=== PATIENT | male | born 1975 | race Caucasian/White ===

== ENCOUNTER 2020-08-26 09:42 | Emergency (ER) | payer OTHER ==
[~2020-08-26] VITALS: Ht 177.8 cm; Wt 108.9 kg
[~2020-08-26 09:42] MED LIST: ACETAMINOPHEN-1 EAC1; APAP500; CARAFATE 1 GM TA1 G1 PO; FLONASE 0.05%50 MCG NASAL; IBUPROFEN 600600 M1 PO; NAPROXEN DELAY500 M1 PO; OMEPRAZOLE 20 M20 MG PO; PERCOCET 5-3251 EACH PO; ULTRAM 50MG TAB50 MG PO; ZOFRAN4 MG PO; ZPAK PO
[2020-08-26 14:01] LABS: AMP/METHAMP POSITIVE (Negative); BARBITURATES Negative (Negative); BENZODIAZEPINES Negative (Negative); COCAINE Negative (Negative); METHADONE Negative (Negative); OPIATES Negative (Negative); PCP Negative (Negative)
[2020-08-26 14:06] VITALS: BP 147/105
== END 2020-08-26 14:05 | disposition home or self-care (01) ==
LOC: ER 09:42
PROVIDERS: Physician Assistant
DX: G43.909 Migraine, unspecified, not intractable, without status migrainosus (principal); F17.210 Nicotine dependence, cigarettes, uncomplicated; I10 Essential (primary) hypertension; E03.9 Hypothyroidism, unspecified